=== PATIENT | male | born 1975 | race Caucasian/White ===

== ENCOUNTER 2024-05-30 15:34 | Inpatient (IN) | payer BC ==
[2024-05-30 16:42] VITALS: BMI 24.6
[2024-05-30] MEDS ORDERED: guaiFENesin 600 MG TABLET.ER (FP) PO PRN (19:06)
[2024-05-30] MEDS ORDERED: IBUPROFEN 400 MG TABLET (FP) PO PRN (19:06)
[2024-05-30] MEDS ORDERED: BENZONATATE 200 MG CAPSULE PO PRN (19:06)
[2024-05-30] MEDS ORDERED: NICOTINE POLACRILEX 2 MG LOZENGE BC PRN (19:06)
[2024-05-30] MEDS ORDERED: P-EPHED 60MG/TRIPROLIDI 2.5MG TABLET PO PRN (19:06)
[2024-05-30] MEDS ORDERED: POLYETHYLENE GLYCOL (HEALTHYLAX) 3350 17 GM PACKET PO PRN (19:06)
[2024-05-30] MEDS ORDERED: NALOXONE (NARCAN) HCL 4 MG/0.1 ML SPRAY NS PRN (19:06)
[2024-05-30] MEDS ORDERED: DICYCLOMINE HCL 10 MG CAPSULE PO PRN (19:06)
[2024-05-30] MEDS ORDERED: MAGNESIUM HYDROX 2400MG/30ML ORAL SUSPENSION 30 ML CUP PO PRN (19:06)
[2024-05-30] MEDS ORDERED: BENZOCAINE/MENTHOL (CHLORASEPTIC ) LOZENGE MM PRN (19:06)
[2024-05-30] MEDS ORDERED: ACETAMINOPHEN 325 MG TABLET (FP) PO PRN (19:06)
[2024-05-30] MEDS ORDERED: methaDONE HCL 10 MG TABLET (FOR DETOX USE ONLY) ONE (20:57)
[2024-05-30] MEDS: methaDONE HCL 10 MG TABLET (FOR DETOX USE ONLY) PO ONE (21:09)
[2024-05-30] MEDS ORDERED: MELATONIN 5 MG TABLETS ONE (22:51)
[2024-05-30] MEDS: MELATONIN 5 MG TABLETS PO SCH (22:53)
[2024-05-30] MEDS: THIAMINE 100 MG TABLET PO SCH (22:53)
[2024-05-30] MEDS: METHOCARBAMOL 500 MG TABLET PO PRN (23:38)
[2024-05-30] MEDS: diazePAM 5 MG TABLET PO PRN (23:38)
[2024-05-31] MEDS ORDERED: methaDONE HCL 10 MG TABLET (FOR DETOX USE ONLY) PO ONE (10:00)
[2024-05-31] MEDS: cloNIDine HCL 0.1 MG TABLET PO PRN (10:26)
[2024-05-31] MEDS: PRENATAL VITAMINS W/ FOLIC ACID TABLET (FP) PO SCH (10:26)
[2024-05-31] MEDS: METHADONE PO ONE (10:27)
[2024-05-31] MEDS: QUEtiapine FUMARATE 100 MG TABLET (FP) PO SCH (22:28)
[2024-06-01] MEDS: methaDONE HCL 10 MG TABLET (FOR DETOX USE ONLY) PO ONE (10:09)
[2024-06-01] MEDS: BISMUTH SUBSALICYLATE 524 MG/30 ML PO PRN (10:14)
[2024-06-01] MEDS: IBUPROFEN 600 MG TABLET (FP) PO PRN (11:14)
[2024-06-01] MEDS: NICOTINE POLACRILEX 2 MG GUM BUC PRN (11:15)
[2024-06-01] MEDS: LOPERAMIDE HCL 2 MG CAPSULE PO PRN (16:01)
[2024-06-02] MEDS ORDERED: methaDONE HCL 10 MG TABLET (FOR DETOX USE ONLY) PO ONE (10:00)
[2024-06-02] MEDS ORDERED: methaDONE HCL 40 MG DISPERSABLE TABLET PO ONE (10:46)
[2024-06-02 11:58] LABS: MCH 25.7 pg (25.7-33.7); MCHC 31.5 g/dl (32.0-35.9); MEAN CELL VOLUME 81.6 fl (80-96); MEAN PLT VOLUME 7.9 fl (7.5-11.1); PLATELET COUNT 252 10^3/uL (134-434); RBC 4.29 M/mm3 (4.00-5.60); RDW 15.1 % (11.9-15.9); WHITE BLOOD COUNT 7.9 K/mm3 (4.0-10.0)
[2024-06-02 12:01] LABS: POTASSIUM 4.9 mmol/L (3.5-5.1)
[2024-06-02 12:04] LABS: CALCIUM 8.8 mg/dL (8.5-10.1)
[2024-06-02 12:05] LABS: ALBUMIN 2.7 g/dl (3.4-5.0); BLOOD UREA NITROGEN 23.3 mg/dL (7-18)
[2024-06-02 12:08] LABS: CREATININE 1.2 mg/dL (0.55-1.3)
[2024-06-02 12:10] LABS: BILIRUBIN,TOTAL 0.2 mg/dL (0.2-1); TOT PROT 6.4 g/dl (6.4-8.2)
[2024-06-02] MEDS: cloNIDine HCL 0.1 MG TABLET PO SCH (13:30)
[2024-06-02] MEDS: NICOTINE 21 MG/24 HOURS TOPICAL PATCH TD SCH (14:10)
[2024-06-03] MEDS: methaDONE 40 MG, methaDONE 20 MG PO ONE (09:08)
[2024-06-03] MEDS ORDERED: methaDONE HCL 10 MG TABLET (FOR DETOX USE ONLY) PO ONE (10:00)
[2024-06-03] MEDS: diazePAM 5 MG TABLET PO PRN (11:09)
[2024-06-03] MEDS: FERROUS SO4 325 MG TABLET (FP) PO SCH (12:19)
[2024-06-04] MEDS: diazePAM 5 MG TABLET PO ONE (01:48)
[2024-06-04] MEDS: cloNIDine HCL 0.1 MG TABLET PO PRN (07:30)
[2024-06-04] MEDS: diazePAM 5 MG TABLET PO PRN (09:15)
[2024-06-04] MEDS: methaDONE 40 MG, methaDONE 30 MG PO ONE (09:15)
[2024-06-04] MEDS: FLU VACCINE (FLULAVAL) PF 45 MCG/0.5 ML SYRINGE 2024-2025 IM ONE (11:08)
[2024-06-04 18:21] LABS: HIV INTERPRETATION NEGATIVE (NEGATIVE)
[2024-06-04] MEDS: ONDANSETRON *ODT* 4 MG TABLET SL PRN (18:40)
[2024-06-04 21:10] VITALS: RESP 16
[2024-06-04] MEDS: SUVOREXANT 10 MG TABLET PO PRN (21:37)
[2024-06-04] MEDS: MAG HYDROX/AL HYDROX/SIMETH 30 ML UNIT-DOSE CUP PO PRN (21:58)
[2024-06-05 06:06] VITALS: BP 108/63; PULSE 69; TEMP 97.7
[2024-06-05] MEDS ORDERED: methaDONE HCL 40 MG DISPERSABLE TABLET PO ONE ×2 (10:00)
== END 2024-06-05 07:48 | disposition home or self-care (01) | DRG 773 ==
LOC: YASAS 15:34 → Y6N 22:41
PROVIDERS: ADMIT Allergy & Immunology; ATTEND Allergy & Immunology
PROC: HZ2ZZZZ Detoxification Services for Substance Abuse Treatment (ICD-10-PCS; principal; 2024-05-30)
DX: F11.23 Opioid dependence with withdrawal (principal); F14.20 Cocaine dependence, uncomplicated; F12.20 Cannabis dependence, uncomplicated; F17.210 Nicotine dependence, cigarettes, uncomplicated; F19.282 Other psychoactive substance dependence with psychoactive substance-induced sleep disorder; F19.24 Other psychoactive substance dependence with psychoactive substance-induced mood disorder; F31.9 Bipolar disorder, unspecified; Z62.810 Personal history of physical and sexual abuse in childhood; Z86.19 Personal history of other infectious and parasitic diseases
CPT/HCPCS: 36415; 80053; 80305; 80307; 85027; 86780; 87389; 90656; 93005; 93010; G0008; Q0162